=== PATIENT | female | born 1990 | race Caucasian/White ===

== ENCOUNTER 2016-10-22 09:15 | Emergency (ER) | payer OTHER ==
[2016-10-22 09:33] LABS: URINE MUCUS NONE SEEN (Up to 25%); URINE RBC NONE SEEN (0-5/hpf)
[2016-10-22 09:41] LABS: URINE APPEARANCE CLEAR; URINE BILIRUBIN NEGATIVE (NEGATIVE); URINE BLOOD TRACE (NEGATIVE); URINE COLOR YELLOW; URINE GLUCOSE NORMAL (NEGATIVE); URINE KETONE NEGATIVE (NEGATIVE); URINE LEUKOCYTE ESTERASE 500 WBC/uL (3+) (NEGATIVE); URINE NITRITE NEGATIVE (NEGATIVE); URINE PROTEIN NEGATIVE (NEG - TRACE); URINE SPECIFIC GRAVITY < or = 1.005 (0.001-1.035); URINE SQUAMOUS EPITHELIAL CELL 0-5/hpf (<= 15/hpf); URINE UROBILINOGEN 0.2mg/dL (Normal) (NEG-1mg/dL)
--- NOTE | 2016-10-22 09:56 | ER PHYSICIAN DOCUMENTATION ---
Physician Documentation [facility] Name:Lyn Vera Age:26 yrs Sex:Female :1990 Arrival Date:10/22/2016 Time:09:15 Bed1 Private MD: Montana Guajardo Disposition: 10/22 09:54 Chart complete. tl1 Disposition: 10/22/16 09:48 Discharged to Home/Self Care. Impression: UTI (Cystitis). - Condition is Good. - Discharge Instructions: BLADDER INFECTION, Female (Adult). - Prescriptions for Pyridium 200 mg Oral tablet - take 1 tablet by ORAL route 3 times per day; 6 tablet. Macrobid 100 mg Oral - take 100 milligram by ORAL route every 12 hours for 5 days; 10 capsule. - Medical Reconciliation form form. - Follow up: Private Physician; When: As needed; Reason: Recheck today's complaints. - Problem is new. - Symptoms are unchanged. HPI: 09:20 This 26 yrs old Female presents to ER with complaints of Pain With Urination. tl1 09:50 The patient presents with urinary symptoms, dysuria, frequency, urgency. Onset: The tl1 symptoms/episode began/occurred gradually, yesterday. Modifying factors: The symptoms are alleviated by nothing, the symptoms are aggravated by nothing. Associated signs and symptoms: Pertinent positives: nausea, Pertinent negatives: diarrhea, fever, hematuria, vomiting. 09:53 Denies the possibility of . Currently menstruating. Uses condoms religiously. tl1 Historical: - Allergies: Amoxicillin; Bactrim; - Home Meds: 1. None - PMHx: None; - PSHx: None; - Tetanus: unknown will f/u with PCP. - Ebola Screening: : Patient denies exposure to infectious person. Patient denies travel to an Ebola-affected area in the 21 days before illness onset. . - Immunization history: Pneumococcal vaccine status is unknown. - Social history: Smoking status: Patient states was never smoker of tobacco. Patient uses alcohol occasionally. Patient/guardian denies using marijuana. ROS: 09:52 Positive for urinary symptoms. tl1 09:52 All other systems are negative. Exam: 09:52 Constitutional: This is a well developed, well nourished patient who is awake, alert, tl1 and in no acute distress. 09:52 Cardiovascular: Rate: normal. 09:52 Respiratory: Respirations: normal. 09:52 Abdomen/GI: Inspection: abdomen appears normal, Palpation: soft, mild abdominal tenderness, in the suprapubic area, mass, is not appreciated, rebound tenderness, is not appreciated, voluntary guarding, is not appreciated. 09:52 Back: CVA tenderness, is absent. 09:52 : Sexual behavior: the patient is sexually active, and reports a single partner, method of control is condoms. Vital Signs: 09:36 BP 154 / 96; Pulse 79; Resp 16; Temp 97.8; Pulse Ox 96% ; Pain 7/10; st MDM: 09:38 Patient medically screened. tl1 09:54 Differential diagnosis: urinary tract infection. Data reviewed: vital signs, nurses tl1 notes, lab test result(s), urinalysis, and as a result, I will discharge patient. Counseling: I had a detailed discussion with the patient and/or guardian regarding: the historical points, exam findings, and any diagnostic results supporting the discharge/admit diagnosis, lab results, the need for outpatient follow up, to return to the emergency department if symptoms worsen or persist or if there are any questions or concerns that arise at home. Response to treatment: There is no appreciated change of the patient's symptoms at this time, and as a result, I will discharge patient. 10/22 09:42 Order name: UA W/ MICRO -CULTURE IF IND EDMS 10/22 09:55 Interpretation: URINE LEUKOCYTE ESTERASE 500 WBC/uL (3+); URINE BLOOD TRACE; URINE WBC tl1 5-10/hpf; URINE BACTERIA 10-20 ORGANISMS/hpf. 10/22 09:56 Order name: Hcg, Urine tl1 10/22 10:03 Order name: HCG, URINE EDMS 10/23 06:24 Order name: URINE CULTURE EDMS Dispensed Medications: No medications were administered Point of Care Testing: Urine Dip: 09:36 pH: 5.0; ; Specific [place]: 1.005; Ketones: Negative; Glucose: Negative; Protein: st Negative; Leukocytes: Positive; Nitrite: Negative ; Blood: Non Hemolyzed Trace; Bilirubin: Negative ; Urobilinogen: Normal Signatures: Soledad Templeton RN RN st Leigh, Tom, MD MD tl1
--- NOTE | 2016-10-22 09:56 | ER NURSING DOCUMENTATION ---
Nurse's Notes [facility] Name:Lyn Vera Age:26 yrs Sex:Female :1990 Arrival Date:10/22/2016 Time:09:15 Bed1 Private MD: Diagnosis:UTI (Cystitis) Presentation: 10/22 09:18 Acuity: PAOLA 4 st 09:38 Presenting complaint: Patient states: pt states she has had symptoms of a UTI for about st a week but they keep getting worst. Transition of care: Home. 09:38 Method Of Arrival: Private Vehicle st Triage Assessment: 09:39 General: Appears in no apparent distress, Behavior is cooperative. Pain: Complains of st pain in groin Pain currently is 6 out of 10 on a pain scale. Pain began about 1 week. : Urine is clear, Reports burning with urination urgency urinary frequency. Historical: - Allergies: Amoxicillin; Bactrim; - Home Meds: 1. None - PMHx: None; - PSHx: None; - Tetanus: unknown will f/u with PCP. - Ebola Screening: : Patient denies exposure to infectious person. Patient denies travel to an Ebola-affected area in the 21 days before illness onset. . - Immunization history: Pneumococcal vaccine status is unknown. - Social history: Smoking status: Patient states was never smoker of tobacco. Patient uses alcohol occasionally. Patient/guardian denies using marijuana. Screenin:42 Infectious Disease Risk None. Abuse screen: Denies threats or abuse. Denies injuries st from another. pt feels safe at home. Nutritional screening: No deficits noted. Vital Signs: 09:36 BP 154 / 96; Pulse 79; Resp 16; Temp 97.8; Pulse Ox 96% ; Pain 7/10; st ED Course: 09:16 Patient arrived in ED. arc 09:18 Soledad Templeton, RN is Primary Nurse. st 09:[address] 09:34 Urine collected. Clean catch specimen. st 09:38 Montana Jiménez MD is Attending Physician. tl1 09:42 Valuables Remains with patient Patient has correct armband on for positive st identification. Bed in low position. Administered Medications: No medications were administered Point of Care Testing: Urine Dip: 09:36 pH: 5.0; ; Specific [place]: 1.005; Ketones: Negative; Glucose: Negative; Protein: st Negative; Leukocytes: Positive; Nitrite: Negative ; Blood: Non Hemolyzed Trace; Bilirubin: Negative ; Urobilinogen: Normal Outcome: 09:48 Discharge ordered by MD. quiroz 09:55 Discharged to home ambulatory. 09:55 Condition: stable 09:55 Discharge instructions given to patient, Instructed on discharge instructions, follow up and referral plans. medication usage, Prescriptions given X 2. 09:55 Patient left the ED. 10/23 09:41 Discharge F/U Call: Spoke with: patient. Are you having any pain? no. Have you filled lc your prescriptions? yes. Did your discharge instructions answer all of your questions? yes Overall Care on a scale of 1-10 with 10 being the best care, you rate our care as: Other comments: FEELING BETTER Signatures: Soledad Templeton, RN Maya Irby RN RN lc Leigh, Tom, MD MD tl1 Tati Harley, Reg Reg arc
== END 2016-10-22 09:56 | disposition home or self-care (01) ==
LOC: ER 09:15
DX: N39.0 Urinary tract infection, site not specified (principal); R11.0 Nausea
CPT/HCPCS: 81001; 84703; 87086; 99283